=== PATIENT | female | born 1995 | race Two or more races ===

== ENCOUNTER 2022-11-25 12:37 | Outpatient (CLI) | payer OTHER | END 2022-11-25 14:25 | disposition home or self-care (01) | LOC: PRENATAL 12:37 | PROVIDERS: ATTEND Obstetrics & Gynecology Maternal & Fetal Medicine | DX: O36.80X0 Pregnancy with inconclusive fetal viability, not applicable or unspecified (principal); Z3A.14 14 weeks gestation of pregnancy ==

== ENCOUNTER 2022-12-11 11:19 | Emergency (ER) | payer OTHER ==
[~2022-12-11] VITALS: Ht 160 cm; Wt 73.5 kg
== END 2022-12-11 18:51 | disposition home or self-care (01) ==
LOC: ER 11:19
DX: O99.612 Diseases of the digestive system complicating pregnancy, second trimester (principal); K92.89 Other specified diseases of the digestive system; Z3A.17 17 weeks gestation of pregnancy; K52.9 Noninfective gastroenteritis and colitis, unspecified

== ENCOUNTER 2023-01-07 14:36 | Outpatient (CLI) | payer OTHER | END 2023-01-07 16:00 | disposition home or self-care (01) | LOC: PRENATAL 14:36 | PROVIDERS: ATTEND Obstetrics & Gynecology Maternal & Fetal Medicine | DX: O35.9XX0 Maternal care for (suspected) fetal abnormality and damage, unspecified, not applicable or unspecified (principal); O35.3XX0 Maternal care for (suspected) damage to fetus from viral disease in mother, not applicable or unspecified; Z14.8 Genetic carrier of other disease; Z3A.20 20 weeks gestation of pregnancy ==

== ENCOUNTER 2023-03-28 14:12 | Outpatient (CLI) | payer OTHER | END 2023-03-28 16:45 | disposition home or self-care (01) | LOC: PRENATAL 14:12 | PROVIDERS: ATTEND Obstetrics & Gynecology Maternal & Fetal Medicine | DX: O26.849 Uterine size-date discrepancy, unspecified trimester (principal); O36.8199 Decreased fetal movements, unspecified trimester, other fetus; Z14.8 Genetic carrier of other disease; Z3A.33 33 weeks gestation of pregnancy ==

== ENCOUNTER 2024-11-03 20:22 | Emergency (ER) | payer OTHER ==
[~2024-11-03] VITALS: Ht 160 cm; Wt 80.7 kg
[~2024-11-03 20:22] MED LIST: INTEGRA PLUS C1 EACH PO
[2024-11-03 22:30] LABS: HEMOGLOBIN 10.2 g/dL (12.0-15.00); MEAN CORPUSCULAR HEMOGLOBIN 28.4 pg (27.00-32.0); MEAN CORPUSCULAR HGB CONC 33.1 g/dl (32.0-36.0); PLATELET COUNT 139 K/uL (150-450); RED CELL DISTRIBUTION WIDTH 14.5 % (11.5-14.5)
== END 2024-11-03 22:54 | disposition home or self-care (01) ==
LOC: ER 20:24
PROVIDERS: General Practice
DX: R53.81 Other malaise (principal); J11.1 Influenza due to unidentified influenza virus with other respiratory manifestations; Z20.822 Contact with and (suspected) exposure to COVID-19; Z91.040 Latex allergy status

== ENCOUNTER 2024-12-20 21:25 | Outpatient (CLI) | payer OTHER ==
[~2024-12-20] VITALS: Ht 160 cm; Wt 83.9 kg
[2024-12-20 20:33] VITALS: BP 98/64
[2024-12-20] MEDS ORDERED: RINGERS SOLUTION,LACTATED 1,000 ML IV SCH (21:45)
[2024-12-20 22:10] LABS: HEMATOCRIT 34.8 % (36.0-45.00); HEMOGLOBIN 11.3 g/dL (12.0-15.00); MEAN CORPUSCULAR HEMOGLOBIN 27.5 pg (27.00-32.0); MEAN CORPUSCULAR HGB CONC 32.3 g/dl (32.0-36.0); PLATELET COUNT 141 K/uL (150-450); RED CELL DISTRIBUTION WIDTH 16.4 % (11.5-14.5)
[2024-12-20 22:33] LABS: ALBUMIN 2.7 gm/dL (3.4-5.0); BILIRUBIN TOTAL 0.42 mg/dL (0.3-1.2); CALCIUM 8.2 mg/dL (8.5-10.1); CREATININE SERUM 0.54 mg/dL (0.55-1.02); GFR 131.68; POTASSIUM 3.65 mEq/L (3.5-5.1); TOTAL PROTEIN 6.7 gm/dL (6.4-8.2)
[2024-12-20] MEDS ORDERED: FAMOTIDINE/PF 20 MG/2 ML VIAL IV PUSH ONE (22:45)
[2024-12-20] MEDS ORDERED: ONDANSETRON HCL 2 MG/ML VIAL IV PRN (22:45)
[2024-12-20] MEDS ORDERED: FAMOTIDINE/PF 20 MG/2 ML VIAL ONE (22:49)
[2024-12-20 23:10] VITALS: BP 97/63
[2024-12-20 23:11] LABS: PH,URINE 5.5 (5.0-8.0); URINE APPEARANCE Clear; URINE BILIRRUBIN Negative (NEGATIVE); URINE BLOOD Negative; URINE COLOR Yellow; URINE GLUCOSE Negative (NEGATIVE); URINE LEUKOCYTE Negative; URINE NITRATE Negative; URINE PROTEIN 30 (NEGATIVE)
[2024-12-20 23:15] LABS: URINE BACTERIA 74.6 uL (0.0-1933); URINE EPITHELIAL CELLS 31.3 uL (0.0-38.8); URINE RBC 2.2 uL (0.0-20.8); URINE WBC 10.9 uL (0.0-23.2)
[2024-12-20 23:40] LABS: URINE CAST 1.32 uL (0.0-1.40); URINE KETONE >=160 (NEGATIVE)
[2024-12-21] MEDS ORDERED: ACETAMINOPHEN 500 MG GEL..CAP PO PRN (03:45)
[2024-12-21 04:03] VITALS: BP 89/60
[2024-12-21 06:03] VITALS: BP 91/59; O2SAT 98
[2024-12-21] MEDS ORDERED: FAMOTIDINE/PF 20 MG/2 ML VIAL IV PUSH SCH (09:00)
[2024-12-21 11:05] VITALS: BP 101/67
[2024-12-21 11:38] VITALS: BP 101/67
== END 2024-12-21 12:20 | disposition home or self-care (01) ==
LOC: OBS/DEL 21:25
PROVIDERS: Obstetrics & Gynecology; ATTEND Specialist
DX: O26.893 Other specified pregnancy related conditions, third trimester (principal); O26.849 Uterine size-date discrepancy, unspecified trimester; O36.8199 Decreased fetal movements, unspecified trimester, other fetus; O60.00 Preterm labor without delivery, unspecified trimester; R11.10 Vomiting, unspecified; Z3A.35 35 weeks gestation of pregnancy

== ENCOUNTER 2025-01-09 21:09 | Inpatient (IN) | payer OTHER ==
[~2025-01-09] VITALS: Ht 160 cm; Wt 82.1 kg
[2025-01-09 21:02] VITALS: BP 120/78
[2025-01-09] MEDS ORDERED: AMPICILLIN SODIUM 2,000 MG VIAL ONE (21:28)
[2025-01-09] MEDS ORDERED: AMPICILLIN SODIUM 2,000 MG VIAL IV STA (21:39)
[2025-01-09] MEDS ORDERED: AMPICILLIN SODIUM 1,000 MG VIAL IV SCH (21:39)
[2025-01-09] MEDS ORDERED: PEPCID AC20 MG PO (21:45)
[2025-01-09] MEDS ORDERED: RINGERS SOLUTION,LACTATED 1,000 ML IV SCH (21:45)
[2025-01-09] MEDS ORDERED: IRON236 MG PO (21:46)
[2025-01-09] MEDS ORDERED: ZOFRAN8 MG PO (21:46)
[2025-01-09] MEDS ORDERED: PRENATABS RX T1 EACH PO (21:46)
[2025-01-09] MEDS ORDERED: OXYTOCIN 20 UNITS/500ML RL PIGGYBAG IV ONE (22:00)
[2025-01-09 22:08] LABS: PH,URINE 5.5 (5.0-8.0); URINE APPEARANCE Clear; URINE BILIRRUBIN Negative (NEGATIVE); URINE BLOOD Negative; URINE COLOR Yellow; URINE GLUCOSE Negative (NEGATIVE); URINE KETONE Trace (NEGATIVE); URINE LEUKOCYTE Small; URINE NITRATE Negative; URINE PROTEIN Trace (NEGATIVE)
[2025-01-09 22:10] LABS: HEMATOCRIT 33.9 % (36.0-45.00); HEMOGLOBIN 11.2 g/dL (12.0-15.00); MEAN CELL VOLUME 84.2 fL (80.00-100.00); MEAN CORPUSCULAR HEMOGLOBIN 27.9 pg (27.00-32.0); MEAN CORPUSCULAR HGB CONC 33.1 g/dl (32.0-36.0); RED BLOOD COUNT 4.03 M/uL (4.00-6.00)
[2025-01-09 22:11] LABS: URINE BACTERIA 988.9 uL (0.0-1933); URINE RBC 9.7 uL (0.0-20.8)
[2025-01-09 22:14] LABS: PLATELET COUNT 128 K/uL (150-450); URINE CAST 1.03 uL (0.0-1.40)
[2025-01-09 22:24] LABS: INR 0.94; PARTIAL THROMBOPLASTIN TIME 26.8 SECONDS (22.0-34.0); PROTHROMBIN TIME 10.3 SECONDS (9.0-11.5)
[2025-01-09 22:45] LABS: ALBUMIN 2.8 gm/dL (3.4-5.0); BILIRUBIN TOTAL 0.23 mg/dL (0.3-1.2); CALCIUM 8.8 mg/dL (8.5-10.1); CREATININE SERUM 0.54 mg/dL (0.55-1.02); GFR 131.68; POTASSIUM 3.82 mEq/L (3.5-5.1); TOTAL PROTEIN 6.8 gm/dL (6.4-8.2)
[2025-01-09 23:35] VITALS: BP 121/70
[2025-01-09] MEDS ORDERED: MORPHINE SULFATE 4 MG/ML VIAL IV ONE (23:45)
[2025-01-10] VITALS (9 sets, daily range): BP systolic 104–127; BP diastolic 63–77
[2025-01-10] MEDS ORDERED: CHLORHEXIDINE GLUCONATE 120 ML BOTTLE TOP ONE ×2 (00:19→03:30)
[2025-01-10] MEDS ORDERED: ERYTHROMYCIN BASE OPHT 1GM EACH TUBE OP ONE ×2 (00:19→03:30)
[2025-01-10] MEDS ORDERED: OXYTOCIN 10 UNITS/ML VIAL ONE (00:21)
[2025-01-10] MEDS ORDERED: IBUprofen 600 MG TABLET PO SCH ×2 (00:45→08:00)
[2025-01-10] MEDS ORDERED: OXYTOCIN 1,000 ML IV SCH (03:30)
[2025-01-10] MEDS ORDERED: OxyCODONE HCL/APAP UD (PERCOCET) PO ONE (04:15)
[2025-01-10] MEDS ORDERED: FAMOtidine 20 MG TABLET PO STA (23:25)
[2025-01-11 07:33] LABS: HEMOGLOBIN 9.9 g/dL (12.0-15.00); MEAN CELL VOLUME 84.7 fL (80.00-100.00); MEAN CORPUSCULAR HGB CONC 33.1 g/dl (32.0-36.0); RED BLOOD COUNT 3.54 M/uL (4.00-6.00); RED CELL DISTRIBUTION WIDTH 18.2 % (11.5-14.5)
[2025-01-11 07:41] LABS: PLATELET COUNT 108 K/uL (150-450)
[2025-01-11 08:00] VITALS: BP 114/68
[2025-01-11] MEDS ORDERED: IRON/V.C/V.B12/FOLIC A/VIT. E 1 CAPL CAPLET PO SCH (17:00)
[2025-01-11 17:47] VITALS: BP 100/67
[2025-01-11] MEDS ORDERED: BISACODYL 10 MG/SUPP.RECT SUPP.RECT RECTAL STA (19:29)
[2025-01-11 23:46] VITALS: BP 98/63
[2025-01-12 07:23] LABS: HEMATOCRIT 30.4 % (36.0-45.00); HEMOGLOBIN 10.2 g/dL (12.0-15.00); MEAN CELL VOLUME 85.1 fL (80.00-100.00); MEAN CORPUSCULAR HEMOGLOBIN 28.4 pg (27.00-32.0); MEAN CORPUSCULAR HGB CONC 33.4 g/dl (32.0-36.0); RED BLOOD COUNT 3.57 M/uL (4.00-6.00); RED CELL DISTRIBUTION WIDTH 18.2 % (11.5-14.5)
[2025-01-12 07:27] LABS: PLATELET COUNT 115 K/uL (150-450)
[2025-01-12 08:00] VITALS: BP 98/64
== END 2025-01-12 15:56 | disposition home or self-care (01) | DRG 807 ==
LOC: OB/GYN 21:09 → LDR 21:09 → OB/GYN 01-10 01:27
PROVIDERS: Student in an Organized Health Care Education/Training Program; ADMIT Specialist; ATTEND Specialist
PROC: 4A1HXCZ Monitoring of Products of Conception, Cardiac Rate, External Approach (ICD-10-PCS; 2025-01-09)
PROC: 10E0XZZ Delivery of Products of Conception, External Approach (ICD-10-PCS; principal; 2025-01-10)
DX: O80 Encounter for full-term uncomplicated delivery (principal); Z37.0 Single live birth; Z3A.38 38 weeks gestation of pregnancy

== ENCOUNTER 2025-01-14 09:26 | Emergency (ER) | payer OTHER ==
[~2025-01-14] VITALS: Ht 160 cm; Wt 77.1 kg
[~2025-01-14 09:26] MED LIST changes: +IRON236 MG PO; +PEPCID AC20 MG PO; +PRENATABS RX T1 EACH PO; +ZOFRAN8 MG PO
[2025-01-14 10:57] LABS: HEMATOCRIT 32.5 % (36.0-45.00); HEMOGLOBIN 10.7 g/dL (12.0-15.00); MEAN CELL VOLUME 85.1 fL (80.00-100.00); MEAN CORPUSCULAR HEMOGLOBIN 27.8 pg (27.00-32.0); MEAN CORPUSCULAR HGB CONC 32.7 g/dl (32.0-36.0); PLATELET COUNT 150 K/uL (150-450); RED BLOOD COUNT 3.83 M/uL (4.00-6.00); RED CELL DISTRIBUTION WIDTH 18.7 % (11.5-14.5)
[2025-01-14 13:34] LABS: URINE APPEARANCE Clear; URINE BILIRRUBIN Negative (NEGATIVE); URINE BLOOD Large; URINE COLOR Yellow; URINE GLUCOSE Negative (NEGATIVE); URINE KETONE Negative (NEGATIVE); URINE LEUKOCYTE Trace; URINE NITRATE Negative; URINE PROTEIN Negative (NEGATIVE)
[2025-01-14 13:38] LABS: URINE BACTERIA 24.4 uL (0.0-1933); URINE EPITHELIAL CELLS 18.5 uL (0.0-38.8); URINE RBC 86.3 uL (0.0-20.8); URINE WBC 10.2 uL (0.0-23.2)
[2025-01-14 14:04] LABS: URINE CAST 0.58 uL (0.0-1.40)
== END 2025-01-14 14:52 | disposition home or self-care (01) ==
LOC: ER 09:28
PROVIDERS: Emergency Medicine
DX: R10.2 Pelvic and perineal pain (principal); Z91.040 Latex allergy status